=== PATIENT | female | born 1980 | race Caucasian/White ===

== ENCOUNTER 2022-07-01 13:11 | Outpatient (REF) | payer BC, SELFPAY ==
--- NOTE | 2022-07-01 13:14 | EEG_ITS ---
This is a 16-channel EEG with an EKG lead. The patient is reported awake during the tracing. Background EEG rhythm is about 10 hertz, 5 to 30 microvolt posteriorly, lower amplitude fast anteriorly. Photic stimulation does not produce any significant abnormality. is also unremarkable. Cardiac lead does not reveal any significant abnormality. No sharp wave spikes or paroxysmal tendency noted. IMPRESSION: Unremarkable EEG. MD RENU Catherine/AMMON / [id number]
== END 2022-07-01 13:12 | disposition home or self-care (01) ==
LOC: HO.NEURO 13:11
PROVIDERS: PCP Student in an Organized Health Care Education/Training Program; Visit Provider Psychiatry & Neurology Neurology
DX: R55 Syncope and collapse (principal)
CPT/HCPCS: 95816

== ENCOUNTER 2022-07-13 15:07 | Outpatient (REF) | payer BC, SELFPAY ==
--- NOTE | ~2022-07-13 | XR_ITS ---
EXAMINATION: ORBITS. CLINICAL INFORMATION: Pre-MRI orbits history of radiopaque foreign foreign body COMPARISON: None TECHNIQUE: 3 views FINDINGS: There is no visible radiopaque foreign body seen in the orbits or the visualized skeletal exam. The bony orbits and paranasal sinuses are normal. No soft tissue abnormality. XR/XR pre mri screening IMPRESSION: No visible radiopaque foreign body seen in the orbits.
== END 2022-07-13 15:08 | disposition home or self-care (01) ==
LOC: HO.MRI 15:07
PROVIDERS: Visit Provider Psychiatry & Neurology Neurology
DX: R55 Syncope and collapse (principal)
CPT/HCPCS: 70551

== ENCOUNTER → 2022-07-16 14:34 | Outpatient (BNVA) | payer BC, SELFPAY | PROVIDERS: PCP Student in an Organized Health Care Education/Training Program; Visit Provider Nurse Practitioner Family | DX: R55 Syncope and collapse (principal); G47.00 Insomnia, unspecified ==

== ENCOUNTER → 2022-08-12 10:27 | Outpatient (BNVA) | payer BC, SELFPAY | PROVIDERS: PCP Student in an Organized Health Care Education/Training Program; Referring Provider Psychiatry & Neurology Neurology; Visit Provider Internal Medicine | DX: R55 Syncope and collapse (principal) | CPT/HCPCS: 93005 ==

== ENCOUNTER → 2022-08-18 12:49 | Outpatient (REF) | payer BC, SELFPAY ==
--- NOTE | 2022-08-18 12:52 | CA_ITS ---
Transthoracic Echocardiogram Patient (Last, First, Middle): Joana Peralta Jo Gender: Female Date of : 1980 Age: 42 Procedure Date: 08/18/2022 Procedure Type: Transthoracic Echocardiogram Location: OP Height: 160.02 cm Weight: 54.43 kg BSA: 1.56 m2 Heart Rate: 78 bpm BP: 116 / 70 mmHg Health Care Facilities Inspector: SB Referring MD: Rick Davila MD Symptoms: R55 - Syncope and collapse Study Quality: Technically Difficult but adequate (narrow ribs) ECG Rhythm: Sinus Conclusions: - The left ventricular systolic function is normal. The visually estimated ejection fraction is between 65-70%. - No obvious valvular pathology seen on this study. Findings Left Ventricle Normal left ventricular cavity size. There is normal left ventricular wall thickness. The left ventricular systolic function is normal. The visually estimated ejection fraction is between 65-70%. There is no evidence of regional wall motion abnormalities. Diastolic function is normal for age. Right Ventricle Normal right ventricular cavity size and systolic function. Atria Both atria are normal in size. Aortic Valve The aortic valve was not well visualized. There is no aortic valve stenosis. There is no aortic valve regurgitation. Mitral Valve The mitral valve appears normal. There is trace mitral valve regurgitation. There is no mitral valve stenosis. Pulmonic Valve The pulmonic valve is likely normal. Tricuspid Valve Normal tricuspid valve structure. There is trace tricuspid valve regurgitation. There is no evidence of pulmonary hypertension. Great Vessels The aorta was not well visualized. The sinuses of valsalva is normal in size. Venous The inferior vena cava is mildly dilated and collapses less than 50% with inspiration. Pericardium/Pleural There is no evidence of pericardial effusion. Prior Study Comparison No prior study available for comparison. Recommendations, Care & Conclusions No obvious valvular pathology seen on this study. Measurements 2D Linear Measurements IVSd: 0.59 0.6-0.9/0.6-1.0 cm LVIDd: 4.20 3.9-5.3/4.2-5.9 cm LVIDd Index: 2.69 2.4-3.2/2.2-3.1 cm/m2 LVIDs: 2.38 2.0-3.6 cm LVPWd: 0.51 0.7-1.1 cm LA Diam: 2.90 2.7-3.8/3.0-4.0 cm LAIDs Index: 1.86 1.5-2.3 cm/m2 LV Mass: 77.34 67-162/88-224 g LV Mass Index: 49.58 43-95/49-115 g/m2 LVOT Diam: 1.90 3.0+(-)1.3 cm 2D Systolic Function EF 4C: 63.60 >55% EF 2C: 79.10 >55% EF BiP: 73.50 >55% Mitral Valve MV Pk E: 1.08 MV PK A: 0.44 MV Decel Time: 236.00 E/A: 2.40 E'Lateral: 17.70 E'Medial: 13.50 E/E' Med: 8.00 E/E' Lat: 6.10 PHT: 69.00 MVA PHT: 3.19 Decel [place]: 4.58 Aortic Valve AoV Pk [place]: 1.38 AoV Pk Grad: 8.00 MARILYN: 2.43 LVOT LVOT Pk [place]: 1.16 LVOT Mn [place]: 0.75 LVOT VTI: 0.24 LVOT Pk Grad: 5.00 LVOT Mn Grad: 3.00 LVOT Diam: 1.90 LVOT Area: 2.84 Diastolic Function MV Pk E: 1.08 MV Pk A: 0.44 E/A: 2.40 E'Medial: 13.50 E/E' Med: 8.00 E' Laterial: 17.70 E/E' Lat: 6.10 Right Ventricle TAPSE (mm): 27.90 TVS' Jasper: 14.00 Tricuspid Valve TR Pk [place]: 2.14 TR Pk Grad: 18.00 RA Press: 3.00 RVSP: 21.00 Great Vessels Aorta Sinus of Valsalva: 2.60 2.0-3.5 cm Pulmonary Veins Pulm Vein S/D 1.10 Pulmonary Valve PV Pk Jasper: 1.06 Peak PV Grad: 4.00 Updated in Other Vendor System with Status of Final Rick Davila MD electronically signed on 08/19/2022 1:34:01 PM with status of Final
== END ==
LOC: HO.CARD 12:49
PROVIDERS: Visit Provider Internal Medicine
DX: R55 Syncope and collapse (principal)
CPT/HCPCS: 93306

== ENCOUNTER 2022-09-02 13:19 | Outpatient (REF) | payer BC, SELFPAY ==
[2022-09-02 13:23] VITALS: BP 137/67; PULSE 92; RESP 16; TEMP 36.3; O2SAT 98
[2022-09-02 13:25] VITALS: BMI 46.8
[2022-09-02 13:28] VITALS: BMI 21.2
[2022-09-02 14:42] VITALS: BP 92/54; PULSE 50; RESP 8; O2SAT 88
[2022-09-02 14:50] VITALS: BP 104/63; PULSE 54; RESP 16; TEMP 36.3; O2SAT 100
[2022-09-02 14:55] VITALS: BP 106/62; PULSE 58; RESP 16; O2SAT 100
[2022-09-02 15:00] VITALS: BP 114/71; PULSE 68; RESP 16; O2SAT 100
--- NOTE | 2022-09-02 15:05 | PM.OP ---
Brief Operative Note Date of Service: 09/02/22 Pre-op diagnosis: Syncope Post-op diagnosis: same Procedure: Implantation off loop recorder Implants: After obtaining full informed consent patient was brought to the minor surgery suite. Patient was then laid on operating table in a supine position. The precordial area was then prepped and draped in a sterile fashion. Patient was then given 2% lidocaine intradermally and subcutaneously in the 4th intercostal space. A Medtronic implantable loop recorder serial number [id number] was then implanted using Seldinger technique in the subcutaneous space. Measured R-wave at 0.54 mv Immediately while view measuring her R-waves, she started feeling not well and had a tonic clonic reaction with loss of consciousness. Noted up pause up to 8 seconds during this episode. Patient was then treated and put in a Trendelenburg position and blood pressure gradually improved and she regained consciousness. Heart rate remained in the 60s. Findings consistent with cardio inhibitory vasovagal syncope brought on by noxious stimulus. The wound was then closed with Steri-Strips after adequate hemostasis achieved. Patient tolerated the procedure well Surgeon: Scooby Valenzuela MD Anesthesia: local Was an Concrete Pipe Plant Supervisor used for this Procedure?: No Estimated blood loss (mL): 5 Pathology: none sent Condition: stable Disposition: same day
--- NOTE | 2022-09-02 15:08 | PM.EVENT ---
Event Note Date of Service: 09/02/22 Event Note: Discussed with the patient about the findings of cardia inhibitory vasovagal reaction. We discussed about aggressive overall fluid and salt intake. Will continue to monitor implantable loop recorder device, however should consider head-up tilt-table test for further assessment. Time Spent With Patient Time: Total time managing care of this patient today ____ minutes.
== END 2022-09-02 13:20 | disposition home or self-care (01) ==
LOC: HO.MS 13:19
PROVIDERS: PCP Student in an Organized Health Care Education/Training Program; Visit Provider Internal Medicine Cardiovascular Disease
PROC: (CPT 33285; principal; 2022-09-02 13:00)
DX: R55 Syncope and collapse (principal)
CPT/HCPCS: 33285; C1764

== ENCOUNTER → 2022-09-04 08:30 | Outpatient (BNVA) | payer BC, SELFPAY | PROVIDERS: PCP Student in an Organized Health Care Education/Training Program; Visit Provider Nurse Practitioner Family | DX: R55 Syncope and collapse (principal); G47.00 Insomnia, unspecified ==

== ENCOUNTER → 2022-09-08 14:43 | Outpatient (BNVA) | payer BC, SELFPAY | PROVIDERS: PCP Student in an Organized Health Care Education/Training Program; Referring Provider Student in an Organized Health Care Education/Training Program; Visit Provider Nurse Practitioner Family | DX: Z13.89 Encounter for screening for other disorder (principal) ==

== ENCOUNTER → 2023-02-24 23:59 | Outpatient (BNV) | payer BC, SELFPAY ==
--- NOTE | 2023-02-27 14:09 | MHC.OFFVIS ---
Intake Intake Visit Reasons: Remote ILR Check- Medtr[employer] Allergies No Known Allergies Allergy (Verified 09/08/22 14:48) PFSH Medical History (Updated 09/08/22 @ 16:34 by NAFISA Wood) Anemia Gastritis Implantable loop recorder present Insomnia Rectal bleeding Syncope and collapse Surgical History H/O rhinoplasty Family History Father Colon cancer Social History Alcohol intake: former Patient Tobacco Use Status: Never used Tobacco e-Cigarette/Vaping Use: Currently Using Substance Use Type: Marijuana Office Procedures Cardiac Device Check Cardiac Device Check Details: Date of service 02/24/2023; in the current monitoring period, there is no evidence of atrial fibrillation or pauses. [id number] Cardiac Interrogation, subcut cardiac rhythm monitor Procedure code (CPT) selection complete Assessment & Plan Assessment & Plan (1) Syncope and collapse: Code(s): R55 - Syncope and collapse (2) Sinus pause: Code(s): I45.5 - Other specified heart block Coding Level of Care Code Procedure Only Diagnoses Syncope and collapse R55 Sinus pause I45.5 CPT Codes Cardiac Device Check - Cardiac Device 16: [id number] Cardiac Interrogation, subcut cardiac rhythm monitor ([id number])
== END ==
PROVIDERS: PCP Student in an Organized Health Care Education/Training Program; Visit Provider Internal Medicine
DX: I45.5 Other specified heart block (principal); Z95.818 Presence of other cardiac implants and grafts
CPT/HCPCS: 93298

== ENCOUNTER 2023-03-04 10:21 | Outpatient (AMB) | payer BC, SELFPAY ==
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
[2023-03-04 10:24] VITALS: BP 102/60; PULSE 87; BMI 21.3
== END 2023-03-04 10:47 | disposition home or self-care (01) ==
PROVIDERS: PCP Student in an Organized Health Care Education/Training Program; Referring Provider Student in an Organized Health Care Education/Training Program; Visit Provider Internal Medicine
DX: I45.5 Other specified heart block (principal); R55 Syncope and collapse
CPT/HCPCS: 99214

== ENCOUNTER → 2023-03-04 10:21 | Outpatient (BNVA) | payer BC, SELFPAY | PROVIDERS: PCP Student in an Organized Health Care Education/Training Program; Referring Provider Student in an Organized Health Care Education/Training Program; Visit Provider Internal Medicine ==

== ENCOUNTER → 2023-03-31 23:59 | Outpatient (BNV) | payer SELFPAY ==
--- NOTE | 2023-04-04 17:09 | MHC.OFFVIS ---
Intake Intake Visit Reasons: Remote ILR Check- Medtronic Allergies No Known Allergies Allergy (Verified 03/04/23 10:25) [facility] Medical History (Updated 03/04/23 @ 11:03 by Rick Davila MD) Implantable loop recorder present Insomnia Syncope and collapse Gastritis Rectal bleeding Anemia Surgical History H/O rhinoplasty Family History Father Colon cancer Social History Alcohol intake: former Patient Tobacco Use Status: Never used Tobacco e-Cigarette/Vaping Use: Currently Using Substance Use Type: Marijuana Office Procedures Cardiac Device Check Cardiac Device Check Details: Date of service 03/31/2023; in the current monitoring period, there is no evidence of pauses or heart block. [id number]-Sldeiv Cardiac Interrogation, subcut cardiac rhythm monitor Procedure code (CPT) selection complete Assessment & Plan Assessment & Plan (1) Sinus pause: Code(s): I45.5 - Other specified heart block Coding Level of Care Code Procedure Only Diagnoses Sinus pause I45.5 CPT Codes Cardiac Device Check - Cardiac Device 16: [id number] Cardiac Interrogation, subcut cardiac rhythm monitor ([id number])
== END ==
PROVIDERS: PCP Student in an Organized Health Care Education/Training Program; Visit Provider Internal Medicine
DX: I45.5 Other specified heart block (principal)
CPT/HCPCS: 93298

== ENCOUNTER → 2023-05-06 23:59 | Outpatient (BNV) | payer SELFPAY ==
--- NOTE | 2023-05-12 14:10 | A.OFFVIS_ITS ---
Intake Intake Visit Reasons: Remote ILR Check- Medtronic Allergies No Known Allergies Allergy (Verified 03/04/23 10:25) [facility] Medical History (Updated 03/04/23 @ 11:03 by Rick Davila MD) Implantable loop recorder present Insomnia Syncope and collapse Gastritis Rectal bleeding Anemia Surgical History H/O rhinoplasty Family History Father Colon cancer Social History Alcohol intake: former Patient Tobacco Use Status: Never used Tobacco e-Cigarette/Vaping Use: Currently Using Substance Use Type: Marijuana Office Procedures Cardiac Device Check Cardiac Device Check Details: Date of service 05/06/2023; in the current monitoring period, there is no junior dence of atrial fibrillation or pauses. 52117-Tzqulf Cardiac Interrogation, subcut cardiac rhythm monitor Procedure code (CPT) selection complete Assessment & Plan Assessment & Plan (1) Syncope and collapse: Code(s): R55 - Syncope and collapse Coding Level of Care Code Procedure Only Diagnoses Syncope and collapse R55 CPT Codes Cardiac Device Check - Cardiac Device 16: [id number] Cardiac Interrogation, subcut cardiac rhythm monitor ([id number])
== END ==
PROVIDERS: PCP Student in an Organized Health Care Education/Training Program; Visit Provider Internal Medicine
DX: R55 Syncope and collapse (principal)
CPT/HCPCS: 93298

== ENCOUNTER → 2023-06-09 23:59 | Outpatient (BNV) | payer SELFPAY ==
--- NOTE | 2023-06-13 13:52 | MHC.OFFVIS ---
Intake Intake Visit Reasons: Remote ILR Check- Medtr[employer] Allergies No Known Allergies Allergy (Verified 03/04/23 10:25) [facility] Medical History (Updated 03/04/23 @ 11:03 by Rick Davila MD) Implantable loop recorder present Insomnia Syncope and collapse Gastritis Rectal bleeding Anemia Surgical History H/O rhinoplasty Family History Father Colon cancer Social History Alcohol intake: former Patient Tobacco Use Status: Never used Tobacco e-Cigarette/Vaping Use: Currently Using Substance Use Type: Marijuana Office Procedures Cardiac Device Check Cardiac Device Check Details: Date of service 06/09/2023; in the current monitoring period, there is no evidence of atrial fibrillation or pauses. [id number]-Eorire Cardiac Interrogation, subcut cardiac rhythm monitor Procedure code (CPT) selection complete Assessment & Plan Assessment & Plan (1) Sinus pause: Code(s): I45.5 - Other specified heart block (2) Syncope and collapse: Code(s): R55 - Syncope and collapse Coding Level of Care Code Procedure Only Diagnoses Sinus pause I45.5 Syncope and collapse R55 CPT Codes Cardiac Device Check - Cardiac Device 16: [id number] Cardiac Interrogation, subcut cardiac rhythm monitor ([id number])
== END ==
PROVIDERS: PCP Student in an Organized Health Care Education/Training Program; Visit Provider Internal Medicine
DX: I45.5 Other specified heart block (principal); Z95.818 Presence of other cardiac implants and grafts
CPT/HCPCS: 93298

== ENCOUNTER → 2023-07-14 23:59 | Outpatient (BNV) | payer SELFPAY ==
--- NOTE | 2023-07-15 12:52 | A.OFFVIS_ITS ---
Intake Intake Visit Reasons: Remote ILR Check- Medtronic Allergies No Known Allergies Allergy (Verified 03/04/23 10:25) [facility] Medical History (Updated 03/04/23 @ 11:03 by Rick Davila MD) Implantable loop recorder present Insomnia Syncope and collapse Gastritis Rectal bleeding Anemia Surgical History H/O rhinoplasty Family History Father Colon cancer Social History Alcohol intake: former Patient Tobacco Use Status: Never used Tobacco e-Cigarette/Vaping Use: Currently Using Substance Use Type: Marijuana Office Procedures Cardiac Device Check Cardiac Device Check Details: Date of service 07/14/2023; in the current monitoring period, there is no junior dence of pauses or AV blocks. 90078-Izycuz Cardiac Interrogation, subcut cardiac rhythm monitor Procedure code (CPT) selection complete Assessment & Plan Assessment & Plan (1) Syncope and collapse: Code(s): R55 - Syncope and collapse (2) Sinus pause: Code(s): I45.5 - Other specified heart block Plan x Coding Level of Care Code Procedure Only Diagnoses Syncope and collapse R55 Sinus pause I45.5 CPT Codes Cardiac Device Check - Cardiac Device 16: 31024-Emmkrf Cardiac Interrogation, subcut cardiac rhythm monitor ([id number])
== END ==
PROVIDERS: PCP Student in an Organized Health Care Education/Training Program; Visit Provider Internal Medicine
DX: R55 Syncope and collapse (principal); I45.5 Other specified heart block; Z95.818 Presence of other cardiac implants and grafts; Z45.09 Encounter for adjustment and management of other cardiac device
CPT/HCPCS: 93298

== ENCOUNTER → 2023-08-18 23:59 | Outpatient (BNV) | payer SELFPAY ==
--- NOTE | 2023-08-24 13:52 | A.OFFVIS_ITS ---
Intake Intake Visit Reasons: Remote ILR Check- Medtronic Allergies No Known Allergies Allergy (Verified 03/04/23 10:25) [facility] Medical History (Updated 03/04/23 @ 11:03 by Rick Davila MD) Implantable loop recorder present Insomnia Syncope and collapse Gastritis Rectal bleeding Anemia Surgical History H/O rhinoplasty Family History Father Colon cancer Social History Alcohol intake: former Patient Tobacco Use Status: Never used Tobacco e-Cigarette/Vaping Use: Currently Using Substance Use Type: Marijuana Office Procedures Cardiac Device Check Cardiac Device Check Details: Date of service 08/18/2023; in the current monitoring period, there is no junior dence of atrial fibrillation or pauses or other significant findings. [id number]-Fedagd Cardiac Interrogation, subcut cardiac rhythm monitor Procedure code (CPT) selection complete Assessment & Plan Assessment & Plan (1) Vasovagal syncope: Code(s): R55 - Syncope and collapse (2) Sinus pause: Code(s): I45.5 - Other specified heart block Plan x Coding Level of Care Code Procedure Only Diagnoses Vasovagal syncope R55 Sinus pause I45.5 CPT Codes Cardiac Device Check - Cardiac Device 16: 76333-Ypeqsm Cardiac Interrogation, subcut cardiac rhythm monitor ([id number])
== END ==
PROVIDERS: PCP Student in an Organized Health Care Education/Training Program; Visit Provider Internal Medicine
DX: I45.5 Other specified heart block (principal); Z95.818 Presence of other cardiac implants and grafts
CPT/HCPCS: 93298

== ENCOUNTER → 2023-09-22 23:59 | Outpatient (BNV) | payer SELFPAY ==
--- NOTE | 2023-09-26 13:14 | A.OFFVIS_ITS ---
Intake Intake Visit Reasons: Remote ILR Check- Medtronic Allergies No Known Allergies Allergy (Verified 03/04/23 10:25) [facility] Medical History (Updated 03/04/23 @ 11:03 by Rick Davila MD) Implantable loop recorder present Insomnia Syncope and collapse Gastritis Rectal bleeding Anemia Surgical History H/O rhinoplasty Family History Father Colon cancer Social History Alcohol intake: former Patient Tobacco Use Status: Never used Tobacco e-Cigarette/Vaping Use: Currently Using Substance Use Type: Marijuana Office Procedures Cardiac Device Check Cardiac Device Check Details: Date of service 09/22/2023; in the current monitoring period, there is no junior dence of atrial fibrillation or significant findings like pauses or heart blocks. 25385-Lbhjvx Cardiac Interrogation, subcut cardiac rhythm monitor Procedure code (CPT) selection complete Assessment & Plan Assessment & Plan (1) Sinus pause: Code(s): I45.5 - Other specified heart block (2) Vasovagal syncope: Code(s): R55 - Syncope and collapse Plan x Coding Level of Care Code Procedure Only Diagnoses Sinus pause I45.5 Vasovagal syncope R55 CPT Codes Cardiac Device Check - Cardiac Device 16: 09104-Hspqkx Cardiac Interrogation, subcut cardiac rhythm monitor ([id number])
== END ==
PROVIDERS: PCP Student in an Organized Health Care Education/Training Program; Visit Provider Internal Medicine
DX: I45.5 Other specified heart block (principal); Z95.818 Presence of other cardiac implants and grafts
CPT/HCPCS: 93298

== ENCOUNTER → 2023-10-27 23:59 | Outpatient (BNV) | payer SELFPAY ==
--- NOTE | 2023-10-28 15:13 | A.OFFVIS_ITS ---
Intake Intake Visit Reasons: Remote ILR check- Medtr[employer] Allergies No Known Allergies Allergy (Verified 03/04/23 10:25) [facility] Medical History (Updated 03/04/23 @ 11:03 by Rick Davila MD) Implantable loop recorder present Insomnia Syncope and collapse Gastritis Rectal bleeding Anemia Surgical History H/O rhinoplasty Family History Father Colon cancer Social History Alcohol intake: former Patient Tobacco Use Status: Never used Tobacco e-Cigarette/Vaping Use: Currently Using Substance Use Type: Marijuana Office Procedures Cardiac Device Check Cardiac Device Check Details: Date of service 10/27/2023; in the current monitoring period, there is no sig nificant arrhythmias or pauses. 46548-Hhkyqs Cardiac Interrogation, subcut cardiac rhythm monitor Procedure code (CPT) selection complete Assessment & Plan Assessment & Plan (1) Sinus pause: Code(s): I45.5 - Other specified heart block (2) Vasovagal syncope: Code(s): R55 - Syncope and collapse Plan: x Plan x Coding Level of Care Code Procedure Only Diagnoses Sinus pause I45.5 Vasovagal syncope R55 CPT Codes Cardiac Device Check - Cardiac Device 16: 18803-Pbtrjz Cardiac Interrogation, subcut cardiac rhythm monitor ([id number])
== END ==
PROVIDERS: PCP Student in an Organized Health Care Education/Training Program; Visit Provider Internal Medicine
DX: I45.5 Other specified heart block (principal); R55 Syncope and collapse; Z95.818 Presence of other cardiac implants and grafts
CPT/HCPCS: 93298

== ENCOUNTER → 2024-02-09 23:59 | Outpatient (BNV) | payer SELFPAY ==
--- NOTE | 2024-03-16 13:36 | MHC.OFFVIS ---
Intake Visit Reasons: Remote ILR check- Med[employer] Allergies No Known Allergies Allergy (Verified 03/04/23 10:25) [facility] Medical History (Updated 03/04/23 @ 11:03 by Rick Davila MD) Implantable loop recorder present Insomnia Syncope and collapse Gastritis Rectal bleeding Anemia Surgical History H/O rhinoplasty Family History Father Colon cancer Social History Alcohol intake: former Patient Tobacco Use Status: Never used Tobacco e-Cigarette/Vaping Use: Currently Using Substance Use Type: Marijuana Office Procedures Cardiac Device Check Cardiac Device Check Details: Date of service 02/09/2024; in the current monitoring period, there is no evidence of atrial fibrillation. 05130-Wtfzxm Cardiac Interrogation, subcut cardiac rhythm monitor Procedure code (CPT) selection complete Assessment & Plan Assessment & Plan (1) Sinus pause: Code(s): I45.5 - Other specified heart block Category: Medical (2) Vasovagal syncope: Code(s): R55 - Syncope and collapse Category: Medical Plan x Coding Level of Care Code Procedure Only Diagnoses Sinus pause I45.5 Vasovagal syncope R55 CPT Codes Cardiac Device Check - Cardiac Device 16: [id number]-Qutopp Cardiac Interrogation, subcut cardiac rhythm monitor ([id number])
== END ==
PROVIDERS: PCP Student in an Organized Health Care Education/Training Program; Visit Provider Internal Medicine
DX: I45.5 Other specified heart block (principal); R55 Syncope and collapse; Z95.818 Presence of other cardiac implants and grafts
CPT/HCPCS: 93298

== ENCOUNTER → 2024-03-15 23:59 | Outpatient (BNV) | payer SELFPAY ==
--- NOTE | 2024-03-22 12:23 | MHC.OFFVIS ---
Intake Visit Reasons: Remote ILR check- Med[employer]onic Allergies No Known Allergies Allergy (Verified 03/04/23 10:25) [facility] Medical History (Updated 03/04/23 @ 11:03 by Rick Davila MD) Implantable loop recorder present Insomnia Syncope and collapse Gastritis Rectal bleeding Anemia Surgical History H/O rhinoplasty Family History Father Colon cancer Social History Alcohol intake: former Patient Tobacco Use Status: Never used Tobacco e-Cigarette/Vaping Use: Currently Using Substance Use Type: Marijuana Office Procedures Cardiac Device Check Cardiac Device Check Details: Date of service 03/15/2024; in the current monitoring period, there is no significant pauses or other concerning findings. 55430-Qwedeu Cardiac Interrogation, subcut cardiac rhythm monitor Procedure code (CPT) selection complete Assessment & Plan Assessment & Plan (1) Sinus pause: Code(s): I45.5 - Other specified heart block Category: Medical (2) Vasovagal syncope: Code(s): R55 - Syncope and collapse Category: Medical Plan x Coding Level of Care Code Procedure Only Diagnoses Sinus pause I45.5 Vasovagal syncope R55 CPT Codes Cardiac Device Check - Cardiac Device 16: [id number] Cardiac Interrogation, subcut cardiac rhythm monitor ([id number])
== END ==
PROVIDERS: PCP Student in an Organized Health Care Education/Training Program; Visit Provider Internal Medicine
DX: I45.5 Other specified heart block (principal); R55 Syncope and collapse; Z95.818 Presence of other cardiac implants and grafts
CPT/HCPCS: 93298

== ENCOUNTER → 2024-04-19 23:59 | Outpatient (BNV) | payer SELFPAY ==
--- NOTE | 2024-05-03 10:01 | A.OFFVIS_ITS ---
Intake Visit Reasons: Remote ILR check- [employer] Allergies No Known Allergies Allergy (Verified 03/04/23 10:25) [facility] Medical History (Updated 03/04/23 @ 11:03 by Rick Davila MD) Implantable loop recorder present Insomnia Syncope and collapse Gastritis Rectal bleeding Anemia Surgical History H/O rhinoplasty Family History Father Colon cancer Social History Alcohol intake: former Patient Tobacco Use Status: Never used Tobacco e-Cigarette/Vaping Use: Currently Using Substance Use Type: Marijuana Office Procedures Cardiac Device Check Cardiac Device Check Details: Date of service 04/19/2024; in the current monitoring period, there is no evidence of significant pauses or other concerning arrhythmias. Artifact noted. [id number]-Xhguas Cardiac Interrogation, subcut cardiac rhythm monitor Procedure code (CPT) selection complete Assessment & Plan Assessment & Plan (1) Implantable loop recorder present: Comment: 09/02/2022 Code(s): Z95.818 - Presence of other cardiac implants and grafts Category: Medical (2) Sinus pause: Code(s): I45.5 - Other specified heart block Category: Medical Plan x Coding Level of Care Code Procedure Only Diagnoses Implantable loop recorder present Z95.818 Sinus pause I45.5 CPT Codes Cardiac Device Check - Cardiac Device 16: 73105-Nehcks Cardiac Interrogation, subcut cardiac rhythm monitor ([id number])
== END ==
PROVIDERS: PCP Student in an Organized Health Care Education/Training Program; Visit Provider Internal Medicine
DX: I45.5 Other specified heart block (principal); Z95.818 Presence of other cardiac implants and grafts
CPT/HCPCS: 93298

== ENCOUNTER → 2024-05-24 23:59 | Outpatient (BNV) | payer SELFPAY ==
--- NOTE | 2024-06-04 10:28 | MHC.OFFVIS ---
Intake Visit Reasons: Rremote ILR check- [employer] Allergies No Known Allergies Allergy (Verified 03/04/23 10:25) [facility] Medical History (Updated 03/04/23 @ 11:03 by Rick Davila MD) Implantable loop recorder present Insomnia Syncope and collapse Gastritis Rectal bleeding Anemia Surgical History H/O rhinoplasty Family History Father Colon cancer Social History Alcohol intake: former Patient Tobacco Use Status: Never used Tobacco e-Cigarette/Vaping Use: Currently Using Substance Use Type: Marijuana Office Procedures Cardiac Device Check Cardiac Device Check Details: Date of service 05/24/2024; in the current monitoring period, there is no evidence of atrial fibrillation or significant pauses or other concerning arrhythmias. 54977-Xgramu Cardiac Interrogation, subcut cardiac rhythm monitor Procedure code (CPT) selection complete Assessment & Plan Assessment & Plan (1) Implantable loop recorder present: Comment: 09/02/2022 Code(s): Z95.818 - Presence of other cardiac implants and grafts Category: Medical (2) Sinus pause: Code(s): I45.5 - Other specified heart block Category: Medical (3) Vasovagal syncope: Code(s): R55 - Syncope and collapse Category: Medical Plan x Coding Level of Care Code Procedure Only Diagnoses Implantable loop recorder present Z95.818 Sinus pause I45.5 Vasovagal syncope R55 CPT Codes Cardiac Device Check - Cardiac Device 16: 10686-Bytqrf Cardiac Interrogation, subcut cardiac rhythm monitor ([id number])
== END ==
PROVIDERS: PCP Student in an Organized Health Care Education/Training Program; Visit Provider Internal Medicine
DX: I45.5 Other specified heart block (principal); R55 Syncope and collapse; Z95.818 Presence of other cardiac implants and grafts
CPT/HCPCS: 93298

== ENCOUNTER → 2024-06-28 23:59 | Outpatient (BNV) | payer SELFPAY ==
--- NOTE | 2024-07-09 10:25 | MHC.OFFVIS ---
Intake Visit Reasons: Remote ILR Check- [employer] Allergies No Known Allergies Allergy (Verified 03/04/23 10:25) [facility] Medical History (Updated 03/04/23 @ 11:03 by Rick Davila MD) Implantable loop recorder present Insomnia Syncope and collapse Gastritis Rectal bleeding Anemia Surgical History H/O rhinoplasty Family History Father Colon cancer Social History Alcohol intake: former Patient Tobacco Use Status: Never used Tobacco e-Cigarette/Vaping Use: Currently Using Substance Use Type: Marijuana Office Procedures Cardiac Device Check Cardiac Device Check Details: Date of service 06/28/2024; in the current monitoring period, there is no evidence of atrial fibrillation or other significant abnormal findings. 62851-Bnqele Cardiac Interrogation, subcut cardiac rhythm monitor Procedure code (CPT) selection complete Assessment & Plan Assessment & Plan (1) Implantable loop recorder present: Comment: 09/02/2022 Code(s): Z95.818 - Presence of other cardiac implants and grafts Category: Medical (2) Sinus pause: Code(s): I45.5 - Other specified heart block Category: Medical Plan x Coding Level of Care Code Procedure Only Diagnoses Implantable loop recorder present Z95.818 Sinus pause I45.5 CPT Codes Cardiac Device Check - Cardiac Device 16: 89757-Xrvpxj Cardiac Interrogation, subcut cardiac rhythm monitor ([id number])
== END ==
PROVIDERS: PCP Student in an Organized Health Care Education/Training Program; Visit Provider Internal Medicine
DX: I45.5 Other specified heart block (principal); Z95.818 Presence of other cardiac implants and grafts
CPT/HCPCS: 93298

== ENCOUNTER → 2024-08-02 23:59 | Outpatient (BNV) | payer MEDICARE, MEDICAID, SELFPAY ==
--- NOTE | 2024-08-09 19:08 | MHC.OFFVIS ---
Intake Visit Reasons: Remote ILR check- [employer] Allergies No Known Allergies Allergy (Verified 03/04/23 10:25) [facility] Medical History (Updated 03/04/23 @ 11:03 by Rick Davila MD) Implantable loop recorder present Insomnia Syncope and collapse Gastritis Rectal bleeding Anemia Surgical History H/O rhinoplasty Family History Father Colon cancer Social History Alcohol intake: former Patient Tobacco Use Status: Never used Tobacco e-Cigarette/Vaping Use: Currently Using Substance Use Type: Marijuana Office Procedures Cardiac Device Check Cardiac Device Check Details: Date of service 08/02/2024; in the current monitoring period, there is no evidence of atrial fibrillation or any significant cheli-arrhythmias. 12047-Axjdqf Cardiac Interrogation, subcut cardiac rhythm monitor Procedure code (CPT) selection complete Assessment & Plan Assessment & Plan (1) Implantable loop recorder present: Comment: 09/02/2022 Code(s): Z95.818 - Presence of other cardiac implants and grafts Category: Medical (2) Sinus pause: Code(s): I45.5 - Other specified heart block Category: Medical Plan x Coding Level of Care Code Procedure Only Diagnoses Implantable loop recorder present Z95.818 Sinus pause I45.5 CPT Codes Cardiac Device Check - Cardiac Device 16: 65698-Lsfqng Cardiac Interrogation, subcut cardiac rhythm monitor ([id number])
== END ==
PROVIDERS: PCP Student in an Organized Health Care Education/Training Program; Visit Provider Internal Medicine
DX: I45.5 Other specified heart block (principal); Z95.818 Presence of other cardiac implants and grafts
CPT/HCPCS: 93298

== ENCOUNTER → 2024-09-06 23:59 | Outpatient (BNV) | payer MEDICARE, MEDICAID, SELFPAY ==
--- NOTE | 2024-09-16 19:18 | MHC.OFFVIS ---
Intake Visit Reasons: Remote ILR Check- [employer] Allergies No Known Allergies Allergy (Verified 03/04/23 10:25) [facility] Medical History (Updated 03/04/23 @ 11:03 by Rick Davila MD) Implantable loop recorder present Insomnia Syncope and collapse Gastritis Rectal bleeding Anemia Surgical History H/O rhinoplasty Family History Father Colon cancer Social History Alcohol intake: former Patient Tobacco Use Status: Never used Tobacco e-Cigarette/Vaping Use: Currently Using Substance Use Type: Marijuana Office Procedures Cardiac Device Check Cardiac Device Check Details: Date of service 09/06/2024; in the current monitoring period, there are no significant cheli-arrhythmias. [id number]-Hdxtjl Cardiac Interrogation, subcut cardiac rhythm monitor Procedure code (CPT) selection complete Assessment & Plan Assessment & Plan (1) Implantable loop recorder present: Comment: 09/02/2022 Code(s): Z95.818 - Presence of other cardiac implants and grafts Category: Medical (2) Sinus pause: Code(s): I45.5 - Other specified heart block Category: Medical (3) Vasovagal syncope: Code(s): R55 - Syncope and collapse Category: Medical Plan x Coding Level of Care Code Procedure Only Diagnoses Implantable loop recorder present Z95.818 Sinus pause I45.5 Vasovagal syncope R55 CPT Codes Cardiac Device Check - Cardiac Device 16: [id number]-Tqdqck Cardiac Interrogation, subcut cardiac rhythm monitor ([id number])
== END ==
PROVIDERS: PCP Student in an Organized Health Care Education/Training Program; Visit Provider Internal Medicine
DX: I45.5 Other specified heart block (principal); Z95.818 Presence of other cardiac implants and grafts; R55 Syncope and collapse
CPT/HCPCS: 93298

== ENCOUNTER → 2024-10-11 23:59 | Outpatient (BNV) | payer MEDICARE, MEDICAID, SELFPAY ==
--- NOTE | 2024-10-25 21:13 | MHC.OFFVIS ---
Intake Visit Reasons: REmote ILR device- [employer] Allergies No Known Allergies Allergy (Verified 03/04/23 10:25) [facility] Medical History (Updated 03/04/23 @ 11:03 by Rick Davila MD) Implantable loop recorder present Insomnia Syncope and collapse Gastritis Rectal bleeding Anemia Surgical History H/O rhinoplasty Family History Father Colon cancer Social History Alcohol intake: former Patient Tobacco Use Status: Never used Tobacco e-Cigarette/Vaping Use: Currently Using Substance Use Type: Marijuana Office Procedures Cardiac Device Check Cardiac Device Check Details: Date of service 10/11/2024; in the current monitoring period, there is no evidence of atrial fibrillation. 26727-Qpyrgu Cardiac Interrogation, subcut cardiac rhythm monitor Procedure code (CPT) selection complete Assessment & Plan Assessment & Plan (1) Implantable loop recorder present: Comment: 09/02/2022 Code(s): Z95.818 - Presence of other cardiac implants and grafts Category: Medical (2) Sinus pause: Code(s): I45.5 - Other specified heart block Category: Medical Plan x Coding Level of Care Code Procedure Only Diagnoses Implantable loop recorder present Z95.818 Sinus pause I45.5 CPT Codes Cardiac Device Check - Cardiac Device 16: 79323-Bzgdts Cardiac Interrogation, subcut cardiac rhythm monitor ([id number])
== END ==
PROVIDERS: PCP Student in an Organized Health Care Education/Training Program; Visit Provider Internal Medicine
DX: I45.5 Other specified heart block (principal); Z95.818 Presence of other cardiac implants and grafts
CPT/HCPCS: 93298

== ENCOUNTER → 2024-12-20 23:59 | Outpatient (BNV) | payer OTHER, SELFPAY ==
--- NOTE | 2024-12-24 09:29 | MHC.OFFVIS ---
Intake Visit Reasons: Remote ILR check- [employer] Allergies No Known Allergies Allergy (Verified 03/04/23 10:25) [facility] Medical History (Updated 03/04/23 @ 11:03 by Rick Davila MD) Implantable loop recorder present Insomnia Syncope and collapse Gastritis Rectal bleeding Anemia Surgical History H/O rhinoplasty Family History Father Colon cancer Social History Alcohol intake: former Patient Tobacco Use Status: Never used Tobacco e-Cigarette/Vaping Use: Currently Using Substance Use Type: Marijuana Office Procedures Cardiac Device Check Cardiac Device Check Details: Date of service 12/20/2024; in the current monitoring period, there is no evidence of atrial fibrillation or pauses. 96016-Iryccf Cardiac Interrogation, subcut cardiac rhythm monitor Procedure code (CPT) selection complete Assessment & Plan Assessment & Plan (1) Implantable loop recorder present: Comment: 09/02/2022 Code(s): Z95.818 - Presence of other cardiac implants and grafts Category: Medical (2) Sinus pause: Code(s): I45.5 - Other specified heart block Category: Medical Plan x Coding Level of Care Code Procedure Only Diagnoses Implantable loop recorder present Z95.818 Sinus pause I45.5 CPT Codes Cardiac Device Check - Cardiac Device 16: 45775-Tsgghs Cardiac Interrogation, subcut cardiac rhythm monitor ([id number])
== END ==
PROVIDERS: PCP Student in an Organized Health Care Education/Training Program; Visit Provider Internal Medicine
DX: I45.5 Other specified heart block (principal); Z95.818 Presence of other cardiac implants and grafts
CPT/HCPCS: 93298

== ENCOUNTER → 2025-01-24 23:59 | Outpatient (BNV) | payer OTHER, SELFPAY ==
--- NOTE | 2025-02-06 20:48 | A.OFFVIS_ITS ---
Intake Visit Reasons: Remote ILR check- [employer] Allergies No Known Allergies Allergy (Verified 03/04/23 10:25) [facility] Medical History (Updated 03/04/23 @ 11:03 by Rick Davila MD) Implantable loop recorder present Insomnia Syncope and collapse Gastritis Rectal bleeding Anemia Surgical History H/O rhinoplasty Family History Father Colon cancer Social History Alcohol intake: former Patient Tobacco Use Status: Never used Tobacco e-Cigarette/Vaping Use: Currently Using Substance Use Type: Marijuana Office Procedures Cardiac Device Check Cardiac Device Check Details: Date of service 01/24/2025; in the current monitoring period, there is no evidence of atrial fibrillation. 50660-Grhprt Cardiac Interrogation, subcut cardiac rhythm monitor Procedure code (CPT) selection complete Assessment & Plan Assessment & Plan (1) Implantable loop recorder present: Comment: 09/02/2022 Code(s): Z95.818 - Presence of other cardiac implants and grafts Category: Medical (2) Sinus pause: Code(s): I45.5 - Other specified heart block Category: Medical Plan x Coding Level of Care Code Procedure Only Diagnoses Implantable loop recorder present Z95.818 Sinus pause I45.5 CPT Codes Cardiac Device Check - Cardiac Device 16: 46417-Euexwb Cardiac Interrogation, subcut cardiac rhythm monitor ([id number])
== END ==
PROVIDERS: PCP Student in an Organized Health Care Education/Training Program; Visit Provider Internal Medicine
DX: I45.5 Other specified heart block (principal); Z95.818 Presence of other cardiac implants and grafts
CPT/HCPCS: 93298

== ENCOUNTER → 2025-04-04 23:59 | Outpatient (BNV) | payer OTHER, SELFPAY ==
--- NOTE | 2025-04-19 12:26 | MHC.OFFVIS ---
Intake Visit Reasons: Remote ILR check- [employer] Allergies No Known Allergies Allergy (Verified 03/04/23 10:25) [facility] Medical History (Updated 03/04/23 @ 11:03 by Rick Davila MD) Implantable loop recorder present Insomnia Syncope and collapse Gastritis Rectal bleeding Anemia Surgical History H/O rhinoplasty Family History Father Colon cancer Social History Alcohol intake: former Patient Tobacco Use Status: Never used Tobacco e-Cigarette/Vaping Use: Currently Using Substance Use Type: Marijuana Office Procedures Cardiac Device Check Cardiac Device Check Details: Date of service 04/04/2025; in the current monitoring period, there is no evidence of bradycardia, pauses, asystole or tachyarrhythmias. [id number]-Qmqgec Cardiac Interrogation, subcut cardiac rhythm monitor Procedure code (CPT) selection complete Assessment & Plan Assessment & Plan (1) Implantable loop recorder present: Comment: 09/02/2022 Code(s): Z95.818 - Presence of other cardiac implants and grafts Category: Medical (2) Sinus pause: Code(s): I45.5 - Other specified heart block Category: Medical Plan x Coding Level of Care Code Procedure Only Diagnoses Implantable loop recorder present Z95.818 Sinus pause I45.5 CPT Codes Cardiac Device Check - Cardiac Device 16: 93475-Uezcri Cardiac Interrogation, subcut cardiac rhythm monitor ([id number])
== END ==
PROVIDERS: PCP Student in an Organized Health Care Education/Training Program; Visit Provider Internal Medicine
DX: I45.5 Other specified heart block (principal); Z95.818 Presence of other cardiac implants and grafts
CPT/HCPCS: 93298

== ENCOUNTER → 2025-05-09 23:59 | Outpatient (BNV) | payer OTHER, SELFPAY ==
--- NOTE | 2025-05-15 16:08 | MHC.OFFVIS ---
Intake Visit Reasons: Remote ILR check- [employer] Allergies No Known Allergies Allergy (Verified 03/04/23 10:25) [facility] Medical History (Updated 03/04/23 @ 11:03 by Rick Davila MD) Implantable loop recorder present Insomnia Syncope and collapse Gastritis Rectal bleeding Anemia Surgical History H/O rhinoplasty Family History Father Colon cancer Social History Alcohol intake: former Patient Tobacco Use Status: Never used Tobacco e-Cigarette/Vaping Use: Currently Using Substance Use Type: Marijuana Office Procedures Cardiac Device Check Cardiac Device Check Details: Date of service 05/09/2025; in the current monitoring period, there are no significant [place] or tachyarrhythmias of concern. 54054-Whhxwd Cardiac Interrogation, subcut cardiac rhythm monitor Procedure code (CPT) selection complete Assessment & Plan Assessment & Plan (1) Implantable loop recorder present: Comment: 09/02/2022 Code(s): Z95.818 - Presence of other cardiac implants and grafts Category: Medical (2) Sinus pause: Code(s): I45.5 - Other specified heart block Category: Medical (3) Vasovagal syncope: Code(s): R55 - Syncope and collapse Category: Medical Plan x Coding Level of Care Code Procedure Only Diagnoses Implantable loop recorder present Z95.818 Sinus pause I45.5 Vasovagal syncope R55 CPT Codes Cardiac Device Check - Cardiac Device 16: 25615-Pqesru Cardiac Interrogation, subcut cardiac rhythm monitor ([id number])
== END ==
PROVIDERS: PCP Student in an Organized Health Care Education/Training Program; Visit Provider Internal Medicine
DX: I45.5 Other specified heart block (principal); Z95.818 Presence of other cardiac implants and grafts; R55 Syncope and collapse
CPT/HCPCS: 93298

== ENCOUNTER → 2025-07-18 10:05 | Outpatient (BNV) | payer OTHER, SELFPAY | PROVIDERS: PCP Student in an Organized Health Care Education/Training Program; Visit Provider Internal Medicine | DX: I45.5 Other specified heart block (principal) | CPT/HCPCS: 93298 ==